=== PATIENT | male | born 1990 | race Two or more races ===

== ENCOUNTER 2020-11-30 10:35 | Outpatient (CLI) | payer OTHER | END 2020-11-30 10:36 | disposition home or self-care (01) | LOC: LAB 10:35 | PROVIDERS: ATTEND Pediatrics Neonatal-Perinatal Medicine | DX: R05 Cough (principal); R50.9 Fever, unspecified; R06.1 Stridor; R06.02 Shortness of breath; Z03.818 Encounter for observation for suspected exposure to other biological agents ruled out ==